=== PATIENT | female | born 1990 | race Caucasian/White ===

== ENCOUNTER 2021-12-06 18:30 | Emergency (ER) | payer MEDICAID ==
[2021-12-06] MEDS ORDERED: PHENERGAN 25 MG25 M1 PO (19:34)
== END 2021-12-06 20:37 | disposition home or self-care (01) ==
LOC: ER1 18:30
DX: R11.2 Nausea with vomiting, unspecified (principal); R51.9 Headache, unspecified; F17.200 Nicotine dependence, unspecified, uncomplicated
CPT/HCPCS: 96374; 96375; 99283; J1100; J1200; J1885; J2765